=== PATIENT | female | born 1950 | race Caucasian/White ===

== ENCOUNTER 2016-12-31 15:56 | Emergency (ER) | payer MEDICARE ==
[2016-12-31 16:11] VITALS: BP 149/84
--- NOTE | 2016-12-31 16:40 | UC ---
Back Pain HPI - HPI Summary HPI Summary: The patient comes in today for: 1. Back pain: Onset: 1-2 weeks. She has a history of chronic back pain--initial onset "a couple years ago." Palliative/provocative: Bending down makes it worse--"but not all the time." Quality: "There are times when it is sharp." Region: In the past, it was the lower back, but now it is of the upper back. Severity: 0/10 at this time while she is sitting in a chair. Time: Comes and goes depending on her activity. Associated symptoms: Event: She was picking up a box of pool chemicals and turned feeling "something" that was wrong. Fevers/infections: NOne. Cancer/unexpected weight loss: None. Numbness/tingling: None new. Weakness: None Problems controlling her bowel/bladder. Treatment: Advil PM at night (1/2 pill last night). * - History of Current Complaint Chief Complaint: UCBackPain Stated Complaint: BACK INJURY Time Seen by Provider: 12/31/16 16:31 Hx Obtained From: Patient Hx Last Menstrual Period: Menopause ?: No - Allergies/Home Medications Allergies/Adverse Reactions: Allergies Allergy/AdvReac Type Severity Reaction Status Date / Time No Known Allergies Allergy Verified 12/31/16 16:11 Home Medications: Home Medications Fexofenadine (NF) [Blanca (NF)] 60 mg PO DAILY 12/31/16 [History Confirmed ] Ibuprofen-Diphenhydramine Citr [Advil Pm 200-38 mg] 1 tab PO BEDTIME PRN [History Confirmed 12/31/16] PMH/Surg Hx/FS Hx/Imm Hx Previously Healthy: Yes Endocrine History Of: Denies: Diabetes, Thyroid Disease, Hyperthyroidism, Hypothyroidism, Dyslipidemia Cardiovascular History Of: Denies: Cardiac Disorders, Hypertension, Pacemaker/ICD, Myocardial Infarction , Congestive Heart Failure, Atrial Fibrillation, Deep Vein Thrombosis, Bleeding Disorders Respiratory History Of: Denies: COPD, Asthma, Bronchitis, Pneumonia, Pulmonary Embolism GI/ History Of: Denies: Gastroesophageal Reflux, Ulcer, Gastrointestinal Bleed, Gall Bladder Disease, Kidney Stones, Diverticulitis, Renal Disease, Urosepsis Neurological History Of: Denies: TIA, CVA, Dementia, Seizures, Migraine Psychological History Of: Denies: Anxiety, Depression, Bipolar Disorder, Schizophrenia, Post Traumatic Stress Disorder Cancer History Of: Denies: Lung Cancer, Colorectal Cancer, Breast Cancer, Prostate Cancer, Cervical Cancer Other History Of: Negative For: HIV, Hepatitis B, Hepatitis C, Anticoagulant Therapy - Surgical History Surgical History: Yes Surgery Procedure, Year, and Place: tubal ligation - Family History Known Family History: Positive: Diabetes Negative: Cardiac Disease, Hypertension - Social History Occupation: Retired Alcohol Use: Weekly Substance Use Type: None Smoking Status (MU): Never Smoked Tobacco Review of Systems Constitutional: Negative Skin: Negative Eyes: Negative ENT: Negative Respiratory: Negative Cardiovascular: Negative Gastrointestinal: Negative Genitourinary: Negative Musculoskeletal: Arthralgia, Myalgia All Other Systems Reviewed And Are Negative: Yes Physical Exam Triage Information Reviewed: Yes Appearance: Well-Appearing, No Pain Distress, Well-Nourished Vital Signs: Initial Vital Signs Temp 97.4 F 12/31/16 16:08 Pulse 98 12/31/16 16:08 Resp 16 12/31/16 16:08 BP 149/84 12/31/16 16:08 Pulse Ox 98 12/31/16 16:08 Vital Signs Reviewed: Yes Eyes: Positive: Conjunctiva Clear. Negative: Discharge ENT: Positive: Hearing grossly normal. Negative: Pharyngeal erythema, Nasal congestion, Nasal drainage, TM bulging, TM dull, TM red, Tonsillar swelling, Tonsillar exudate Dental: Negative: Gross Decay/Caries @, Dental Fracture @ Neck: Positive: Supple, Nontender, No Lymphadenopathy. Negative: Nuchal Rigidity Respiratory: Positive: Lungs clear, No respiratory distress, No accessory muscle use. Negative: Crackles, Wheezing Cardiovascular: Positive: RRR, No Murmur Abdomen Description: Positive: Nontender, No Organomegaly, Soft. Negative: Distended, Guarding Musculoskeletal: Positive: Strength Intact, ROM Intact, Other: - The patient had no psychomotor slowing or guarding. There was no tenderness to palpation of the spinous processes or the paraspinous musculature. There was no CVA tenderness. She had no marked restriction of her spine movement (forward flexion, backward extension, bilateral flexion). She had no SLR bilaterally and her DTR were 2+/2 x 2 for patellar and 1+/2 x 2 for her Achilles. Neurological: Positive: Alert, Muscle Tone Normal Psychological: Positive: Age Appropriate Behavior, Consolable Skin: Negative: rashes, breakdown Back Pain Course/Dx - Course Course Of Treatment: Patient told of her diagnosis and treatment options. She was agreeable to NSAID and muscle relaxant. - Differential Dx/Diagnosis Provider Diagnoses: High blood pressure. Mid back pain/strain Discharge - Discharge Plan Condition: Stable Disposition: HOME Patient Education Materials: Hypertension (ED), Back Pain (ED) Referrals: Arvind Maher MD [Primary Care Provider] - 1 Week (Please see your primary care provider in a week to see how well you are doing. If you get worse, please be seen sooner in the ER or through us.)
== END 2016-12-31 17:05 | disposition home or self-care (01) ==
LOC: UCEAST 15:56
DX: S29.012A Strain of muscle and tendon of back wall of thorax, initial encounter (principal); M54.9 Dorsalgia, unspecified; I10 Essential (primary) hypertension; X50.9XXA Other and unspecified overexertion or strenuous movements or postures, initial encounter; Z78.0 Asymptomatic menopausal state
CPT/HCPCS: 99212; G0463

== ENCOUNTER 2018-02-13 09:03 | Emergency (ER) | payer MEDICARE, BC ==
[2018-02-13 09:12] VITALS: BP 135/89
[2018-02-13] MEDS ORDERED: Ondansetron ODT TAB* 4 MG PO ONE (10:17)
--- NOTE | 2018-02-13 10:26 | UC ---
Abdominal Pain Female HPI - HPI Summary HPI Summary: c/o nausea, vomiting and diarrhea for the past 36 hrs, she vomited last yesterday night and ever since has been taking sips of water and tolerating it. She had quite a bit of dry heaving since last night and states she started to feel pain on RUQ. Denies chills or fever, denies flank pain or radiation of pain to other areas. - History of Current Complaint Chief Complaint: UCGI Stated Complaint: VOMITING Time Seen by Provider: 02/13/18 09:51 Hx Last Menstrual Period: Menopause ?: No Onset/Duration: Sudden Onset, Lasting Days Timing: Constant - minutes Severity Initially: Mild Severity Currently: Mild Pain Intensity: 3 Location: Discrete At: RUQ Character: Aching Aggravating Factor(s): Nothing Alleviating Factor(s): Nothing Associated Signs and Symptoms: Positive: Nausea, Vomiting, Diarrhea - Risk Factors Ectopic Risk Factor: Negative Ovarian Torsion Risk Factor: Negative Allergies/Adverse Reactions: Allergies Allergy/AdvReac Type Severity Reaction Status Date / Time No Known Allergies Allergy Verified 02/13/18 09:12 PMH/Surg Hx/FS Hx/Imm Hx Previously Healthy: Yes Other History Of: Negative For: HIV, Hepatitis B, Hepatitis C, Anticoagulant Therapy - Surgical History Surgical History: Yes Surgery Procedure, Year, and Place: tubal ligation - Family History Known Family History: Positive: Diabetes Negative: Cardiac Disease, Hypertension - Social History Alcohol Use: Weekly Substance Use Type: None Smoking Status (MU): Never Smoked Tobacco Review of Systems Constitutional: Negative Gastrointestinal: Abdominal Pain, Vomiting, Diarrhea, Nausea All Other Systems Reviewed And Are Negative: Yes Physical Exam Triage Information Reviewed: Yes Appearance: Well-Appearing, No Pain Distress, Obese Vital Signs: Initial Vital Signs Temp 97.6 F 02/13/18 09:08 Pulse 103 02/13/18 09:08 Resp 18 02/13/18 09:08 BP 135/89 02/13/18 09:08 Pulse Ox 96 02/13/18 09:08 Vital Signs Reviewed: Yes Eyes: Positive: Conjunctiva Clear ENT: Positive: Pharynx normal Neck: Positive: Supple, Nontender, No Lymphadenopathy Respiratory: Positive: Chest non-tender, Lungs clear, Normal breath sounds, No respiratory distress Cardiovascular: Positive: RRR, No Murmur, Pulses Normal, Brisk Capillary Refill Abdomen Description: Positive: Nontender, No Organomegaly, Soft, Other: - maddox sign negative Bowel Sounds: Positive: Present Abd Pain Female Course/Dx - Course Course Of Treatment: Patient's history and exam compatible with viral gastroenteritis, has been able to tolerate fluids since last night. Abdominal exam was negative. Possible etiology of pain was mechanical due to repeated dry heaving. She was concerned about gallstones and mother/brother had cholecystectomy in the past. F/u with PCP if symptoms persist. - Differential Dx/Diagnosis Provider Diagnoses: viral gastroenteritis Discharge - Sign-Out/Discharge Documenting (check all that apply): Discharge/Admit/Transfer - Discharge Plan Condition: Good Disposition: HOME Prescriptions: Ondansetron TAB* [Zofran 4 MG Tab*] 4 mg PO Q6H PRN 5 Days #20 tab PRN Reason: Nausea Patient Education Materials: Ondansetron (By mouth), Dehydration (ED), Gastroenteritis (ED) Referrals: Arvind Maher MD [Primary Care Provider] - Additional Instructions: follow up with your primary care doctor in 1-2 weeks - Billing Disposition and Condition Condition: GOOD Disposition: Home
== END 2018-02-13 10:30 | disposition home or self-care (01) ==
LOC: UCEAST 09:03
DX: K52.9 Noninfective gastroenteritis and colitis, unspecified (principal)
CPT/HCPCS: A9270-GY

== ENCOUNTER 2018-03-04 07:58 | Emergency (ER) | payer BC, MEDICARE ==
[2018-03-04 08:09] VITALS: BP 128/71
--- NOTE | 2018-03-04 08:33 | UC ---
Lower Extremity/Ankle HPI - HPI Summary HPI Summary: WAS WALKING ON THE STAIRS WHILE CARRYING A TRAY YESTERDAY AND MISSED A STEP FALLING DOWN AND INJURING HER RIGHT FOOT AND ANKLE. IS UNABLE TO WEIGHT-BEAR. - History of Current Complaint Chief Complaint: UCLowerExtremity Stated Complaint: FOOT INJURY Time Seen by Provider: 03/04/18 08:27 Hx Obtained From: Patient Hx Last Menstrual Period: Menopause Onset/Duration: Sudden Onset, Lasting Hours, Still Present Severity Initially: Moderate Severity Currently: Moderate Pain Intensity: 7 Pain Scale Used: 0-10 Numeric Aggravating Factor(s): Standing, Ambulation Alleviating Factor(s): Rest, Elevation Able to Bear Weight: No - WITH SEVERE PAIN - Allergies/Home Medications Allergies/Adverse Reactions: Allergies Allergy/AdvReac Type Severity Reaction Status Date / Time No Known Allergies Allergy Verified 03/04/18 08:09 Home Medications: Home Medications NK [No Home Medications Reported] 03/04/18 [History Confirmed 03/04/18] PMH/Surg Hx/FS Hx/Imm Hx Previously Healthy: Yes Other History Of: Negative For: HIV, Hepatitis B, Hepatitis C, Anticoagulant Therapy - Surgical History Surgical History: Yes Surgery Procedure, Year, and Place: tubal ligation - Family History Known Family History: Positive: Diabetes Negative: Cardiac Disease, Hypertension - Social History Alcohol Use: Weekly Substance Use Type: None Smoking Status (MU): Never Smoked Tobacco Review of Systems Constitutional: Negative Skin: Bruising Respiratory: Negative Cardiovascular: Negative Gastrointestinal: Negative Musculoskeletal: Arthralgia, Decreased ROM, Edema All Other Systems Reviewed And Are Negative: Yes Physical Exam Triage Information Reviewed: Yes Appearance: Well-Appearing, No Pain Distress, Well-Nourished Vital Signs: Initial Vital Signs Temp 96.7 F 03/04/18 08:06 Pulse 80 03/04/18 08:06 Resp 17 03/04/18 08:06 BP 128/71 03/04/18 08:06 Pulse Ox 100 03/04/18 08:06 Vital Signs Reviewed: Yes Eyes: Positive: Conjunctiva Clear ENT: Positive: Hearing grossly normal Neck: Positive: Supple Respiratory: Positive: No respiratory distress, No accessory muscle use Cardiovascular: Positive: Pulses Normal Abdomen Description: Positive: Soft Musculoskeletal: Positive: ROM Limited @ - RIGHT FOOT/ANKLE, Edema @ - RIGHT FOOT/ANKLE, Other: - TTP RIGHT ANKLE LATERAL MALLEOLUS AND MALLEOLAR ZONE. TTP RIGHT 5TH METATARSAL. Neurological: Positive: Alert Psychological: Positive: Age Appropriate Behavior Skin: Positive: Other - BRUISING RIGHT FOOT Diagnostics - Radiology RIGHT FOOT/ANKLE XRAYS Xray Interpretation: Positive (See Comments) - 1. Capsular avulsion type fractures flanking the dorsal margin of the talonavicular articulation. 2. Nondisplaced fracture tuberosity base of fifth metatarsal. 3. Corresponding soft tissue swelling. Radiology Interpretation Completed By: Radiologist Lower Extremity Course/Dx - Differential Dx/Diagnosis Provider Diagnoses: 1. Capsular avulsion with osseous injury component - right ankle. 2. Nondisplaced fracture tuberosity base of right fifth metatarsal. Discharge - Sign-Out/Discharge Documenting (check all that apply): Patient Departure - area between the ice. While I trying to fill at 67 or 68 so as not to light free he people out and she presented to 7 days things outlined I didn't touch that she is thinking that the 70 - Discharge Plan Condition: Stable Disposition: HOME Patient Education Materials: Foot Fracture in Adults (ED) Referrals: Arvind Maher MD [Primary Care Provider] - If Needed Jose M Calloway MD [Medical Doctor] - 3 Days Additional Instructions: XRAY TODAY SHOWS 1. Capsular avulsion type fractures flanking the dorsal margin of the talonavicular articulation. 2. Nondisplaced fracture tuberosity base of fifth metatarsal. 3. Corresponding soft tissue swelling. WEAR THE BOOT AT ALL TIMES AND DO NOT WEIGHT BEAR UNTIL SEEN BY ORTHO. ELEVATE WHEN SEATED. ICE 4 TIMES DAILY. - Billing Disposition and Condition Condition: STABLE Disposition: Home
--- NOTE | 2018-03-04 09:03 | RAD ---
Indication: RIGHT ankle pain post fall. Pain at the dorsum of the foot. Comparison: No relevant prior exams available on the [facility]ACS for comparison. Technique: AP, mortise, and lateral views RIGHT ankle. AP, lateral, and oblique views RIGHT foot. Report: Small waferlike osseous fragments at the dorsal margin of the head of the talus and dorsal margin of the navicula most consistent with sequela of capsular avulsion with osseous injury component. Nondisplaced transverse fracture at the tuberosity of the base of the fifth metatarsal. Negative for additional fracture or articular malalignment at the ankle or foot. Soft tissue swelling most prominent over the lateral aspect of the hind through mid foot and over the dorsum of the ankle and foot. IMPRESSION: #. Capsular avulsion type fractures flanking the dorsal margin of the talonavicular articulation. #. Nondisplaced fracture tuberosity base of fifth metatarsal. #. Corresponding soft tissue swelling.
--- NOTE | 2018-03-04 09:03 | RAD ---
Indication: RIGHT ankle pain post fall. Pain at the dorsum of the foot. Comparison: No relevant prior exams available on the [facility] [place] for [place]. Technique: AP, mortise, and lateral views RIGHT ankle. AP, lateral, and oblique views RIGHT foot. Report: Small waferlike osseous fragments at the dorsal margin of the head of the talus and dorsal margin of the navicula most consistent with sequela of capsular avulsion with osseous injury component. Nondisplaced transverse fracture at the tuberosity of the base of the fifth metatarsal. Negative for additional fracture or articular malalignment at the ankle or foot. Soft tissue swelling most prominent over the lateral aspect of the hind through mid foot and over the dorsum of the ankle and foot. IMPRESSION: #. Capsular avulsion type fractures flanking the dorsal margin of the talonavicular articulation. #. Nondisplaced fracture tuberosity base of fifth metatarsal. #. Corresponding soft tissue swelling.
== END 2018-03-04 09:59 | disposition home or self-care (01) ==
LOC: UCEAST 07:58
DX: S82.891A Other fracture of right lower leg, initial encounter for closed fracture (principal); S92.354A Nondisplaced fracture of fifth metatarsal bone, right foot, initial encounter for closed fracture; W10.8XXA Fall (on) (from) other stairs and steps, initial encounter; Y93.01 Activity, walking, marching and hiking; Y92.9 Unspecified place or not applicable
CPT/HCPCS: 99212; G0463

== ENCOUNTER 2018-03-22 06:33 | Inpatient (IN) | payer MEDICARE ==
--- OUTSIDE RECORDS SUMMARY | 2018-03-22 06:45 | XMS REPORT ---
:1950 External Reference #:[id number] Author Organization [employer] Address [address] [place] [address] [place] [address] Phone [phone] Care Team Providers Name Role Phone Arvind Maher MD Primary Care Physician Unavailable Payers Type Date Identification Numbers Payment Provider Subscriber Health Maintenance Policy Number: Medicare Blue Ppo Roxy Barreto [facility] [place] (O) [id number] PayID: [id number] [address] [address] [place] [address] Medigap Part B Effective: 08/16/2012 Policy Number: BS Of [place] Roxy Barreto [id number] Expires: 08/15/2016 PayID: [id number] [address] [address] [place] [address] Problems Description No Information Social History Type Date Description Comments Smoking Patient has never smoked Allergies, Adverse Reactions, Alerts Date Description Reaction Status Severity Comments 03/07/2018 NKDA active Medications Medication Date Status Form Strength Qnty SIG Indications Ordering Provider No Active 03/07/2018 Active Unknown Medications Vital Signs Date Vital Result Comment 03/07/2018 Height 68 inches 5'8" Weight 190.00 lb Heart Rate 76 /min BP Systolic Sitting 116 mmHg BP Diastolic Sitting 84 mmHg Respiratory Rate 16 /min Pain Level 3 BMI (Body Mass Index) 28.9 kg/m2 Results Description No Information Procedures Date CPT Code Description Status 07/06/2017 20229 Destruction Of Benign Lesions Any Method 1-14 lesions Completed 01/31/2013 73752 Rad Exam; Foot Comp Completed 01/16/2013 96270 FX Treatment Closed Phalanx Other Than Great Toe W/O Completed Manip 01/16/2013 22324 FX Treatment Closed Phalanx Other Than Great Toe W/O Completed Manip 01/16/2013 17376 FX Metatarsal Care Completed Plan of Care Future Appointment(s):04/22/2018 9:15 am - [facility]
[2018-03-22] MEDS ORDERED: NS 0.9% 1000 ML* 2,000 ML IV ONE (06:53)
[2018-03-22 07:28] LABS: ABS Basophils 0.1 10^3/ul (0-0.2); ABS Eosinophils 0 10^3/ul (0-0.6); ABS Lymphocytes 1.8 10^3/ul (1.0-4.8); ABS Monocytes 0.8 10^3/ul (0-0.8); ABS Neutrophils 13.1 10^3/ul (1.5-7.7); ABS Nucleated RBC 0 10^3/ul; Eosinophil % 0.3 % (0-6); Hematocrit 44 % (35-47); Hemoglobin 14.6 g/dl (12.0-16.0); Lymphocyte % 11.3 % (25-47); Mean Corpuscular HGB Conc 33 g/dl (31-36); Mean Corpuscular Hemoglobin 27 pg (27-31); Mean Corpuscular Volume 80 fL (80-97); Nucleated Red Blood Cells % 0.1; Platelet Count 208 10^3/ul (150-450); Red Blood Count 5.48 10^6/ul (4.00-5.40); Red Cell Distribution Width 14 % (10.5-15); White Blood Count 15.8 10^3/ul (3.5-10.8)
[2018-03-22 07:41] LABS: EGFR Non-African American 38.6 (>60)
[2018-03-22] MEDS ORDERED: Iodixanol* (CONTRAST) 320 MG/ML 100 ML SDV IV ONE (07:43)
[2018-03-22] MEDS ORDERED: Alteplase* 100 MG VIAL ONE (08:15)
--- NOTE | 2018-03-22 08:19 | RAD ---
INDICATION: Chest pain. Short of breath. Evaluate for pulmonary embolus. COMPARISON: None TECHNIQUE: Axial source images were obtained from the thoracic inlet to the hemidiaphragms following administration of [address] angiographic technique was utilized. Coronal and sagittal reconstructed images were acquired. CHEST FINDINGS: Neck/thyroid: The visualized neck to include the thyroid appear normal. Chest wall: There are no acute abnormalities of the bony thorax or chest wall. There is no supraclavicular, infraclavicular, or axillary lymphadenopathy. Lungs : There are no pulmonary parenchymal masses or infiltrates. The pulmonary interstitium appears normal. There are no endobronchial lesions. Cardiomediastinal structures: There is a saddle-type pulmonary embolus with involvement of second order and distal branches bilaterally. There is preferential involvement of the lower lobes. This represent large thrombus burden The heart is normal in size. There is no pericardial effusion. There is no evidence of aortic aneurysm or dissection. There is no mediastinal or hilar adenopathy. The esophagus appears normal. Pleura : There are no pleural-based masses or effusions. Other: Limited views the upper abdomen demonstrate cholelithiasis with several large gallstones measuring up to 2.4 cm. There is a small hiatal hernia. IMPRESSION: 1. Saddle pulmonary embolus. 2. Cholelithiasis. Findings discussed with emergency department at 0810 hours
[2018-03-22] MEDS ORDERED: Alteplase* 100 MG in PREMIX* 100 ML IVPB ONE (08:25)
--- NOTE | 2018-03-22 10:31 | ECHO ---
Patient: ROXY NASH [facility] Rec#: [id number] : 1950 Date: 03/22/2018 Age: 67y Height: 172.72 cm / 68.0 in Weight: 96.16 kg / 211.9 lbs Sex: F BSA: 2.1 Room#: [facility] Admit Date#: 03/22/2018 Type: Inpatient Referring: Emili De La Torre Reading: Attila Winchester MD Commercial Decorator: [facility] Commercial Decorator: Roxy Johnson RDCS CC: Arvind Maher MD Transthoracic Echocardiogram Indication: Pulmonary Emboli BP: 105/74 HR: 93 Rhythm: NSR Findings History: No PMHx, currently with saddle PE. Technical Comments: The study quality is fair. Completed at 0957. Left Ventricle: The left ventricular chamber size is decreased. There is normal left ventricular systolic function. The estimated ejection fraction is 60-65%. Abnormal left ventricular diastolic function is observed. Abnormal left ventricular diastolic filling is observed, consistent with impaired relaxation. Left Atrium: The left atrial chamber size is normal. Right Ventricle: The right ventricle is moderate to severely dilated. The right ventricular global systolic function is severely reduced. The free wall of the right ventricle appears akinetic.Preserved RV function at the apex c/w Kee's sign: consider pulmonary embolism and acute cor pulmonale. Flattened in systole and diastole consistent with right ventricular pressure and volume overload. Right Atrium: The right atrium is mildly dilated. Aortic Valve: The aortic valve is trileaflet. There is no evidence of aortic regurgitation. There is no evidence of aortic stenosis. Mitral Valve: The mitral valve leaflets appear normal. There is no evidence of mitral regurgitation. There is no evidence of mitral stenosis. Tricuspid Valve: The tricuspid valve leaflets are normal. There is mild to moderate tricuspid regurgitation. There is evidence that pulmonary hypertension may be underestimated. There is no tricuspid stenosis. Pulmonic Valve: The pulmonic valve appears normal. There is no evidence of pulmonic regurgitation. There is no pulmonic stenosis. Pericardium: A pericardial fat pad is visualized. Aorta: There is no dilatation of the ascending aorta. There is no dilatation of the aortic arch. There is no dilation of the aortic root. Pulmonary Artery: The main pulmonary artery appears normal. Venous: The inferior vena cava appears normal in size. There is a greater than 50% respiratory change in the inferior vena cava dimension. Summary: There was not any prior study for comparison. Conclusions The estimated ejection fraction is 60-65%. Abnormal left ventricular diastolic filling is observed, consistent with impaired relaxation. The right ventricle is moderate to severely dilated. The right ventricular global systolic function is severely reduced. The free wall of the right ventricle appears akinetic. Preserved RV function at the apex c/w Kee's sign: consider pulmonary embolism and acute cor pulmonale. Flattened in systole and diastole consistent with right ventricular pressure and volume overload. The right atrium is mildly dilated. There is mild to moderate tricuspid regurgitation. There is evidence that pulmonary hypertension may be underestimated. Measurements Name Value Normal Range RVIDd (AP) 2D 3.3 cm (0.9 - 2.6) RVDdMajor (2D) 5.7 cm (2.2 - 4.4) RAd ISD 4CH 5 cm (3.4 - 4.9) RA (A4C)W 3.5 cm (2.9 - 4.6) IVSd (2D) 1 cm (0.6 - 1) LVPWd (2D) 1 cm (0.6 - 1) LVIDd (2D) 3 cm (3.6 - 5.4) LVIDs (2D) 2.1 cm - LV FS (2D) 30 % (25 - 45) Aortic Annulus 1.8 cm (1.4 - 2.6) Ao root diameter (2D) 2.9 cm (2.1 - 3.5) Ascending Ao 2.9 cm (2.1 - 3.4) Aortic arch 2.6 cm (1.8 - 3.4) Descending Ao 0.7 cm - LA dimension (AP) 2D 2.4 cm (2.3 - 3.8) LAd ISD 4CH 4.5 cm (2.9 - 5.3) LA ISD 4CH W 2.8 cm (2.5 - 4.5) Name Value Normal Range MV E-wave Vmax 0.6 m/sec - MV deceleration time 146 msec - MV A-wave Vmax 1 m/sec - MV E:A ratio 0.58 ratio - LV septal e' Vmax 0.06 m/sec - LV lateral e' Vmax 0.1 m/sec - LV E:e' septal ratio 10 ratio - LV E:e' lateral ratio 6 ratio - Name Value Normal Range AV Vmax 1.3 m/sec - AV VTI 19.2 cm - AV peak gradient 6.36 mmHg - AV mean gradient 3.25 mmHg - LVOT Vmax 0.9 m/sec - LVOT VTI 15.3 cm - LVOT peak gradient 3.37 mmHg - LVOT mean gradient 1.75 mmHg - Name Value Normal Range TR Vmax 2.7 m/sec - TR peak gradient 29 mmHg - RAP 3 mmHg - RVSP 32 mmHg - IVC diameter 1.9 cm - Name Value Normal Range PV Vmax 0.4 m/sec - PV peak gradient 0.6 mmHg -
--- NOTE | 2018-03-22 11:05 | ED ---
Shortness of Breath - HPI Summary HPI Summary: Patient is a 67-year-old female presenting to the ED with sudden onset shortness of breath this morning. She states she has been feeling ill for the past 2 days with some shortness of breath, but states this increased drastically upon wakening this morning. She was unable to walk a few steps before losing her breath and needing to sit down. Recent fracture to the right foot without surgery. However, she states she continues to be ambulatory. She takes no medications and denies any significant health history. Denies any previous episodes of DVT or PE. Denies any chest pain. She endorses some calf pain, redness and swelling which occurred last week but had spontaneously resolved. - History of Current Complaint Chief Complaint: EDShortnessOfBreath Time Seen by Provider: 03/22/18 06:42 Hx Obtained From: Patient Onset/Duration: Sudden Onset Timing: Constant Current Severity: Severe Dyspnea At: Rest Aggrevating Factors: Movement Associated Signs & Symptoms: Negative, Calf Pain/Swelling Related History: Recent Trauma - Risk Factors Pulmonary Embolism: Trauma - recent foot fx Cardiac: Negative Pseudomonas: Negative Tuberculosis: Negative - Allergy/Home Medications Allergies/Adverse Reactions: Allergies Allergy/AdvReac Type Severity Reaction Status Date / Time No Known Allergies Allergy Verified 03/22/18 06:41 PMH/Surg Hx/FS Hx/Imm Hx Previously Healthy: Yes Endocrine/Hematology History: Denies: Hx Anticoagulant Therapy, Hx Diabetes, Hx Thyroid Disease Cardiovascular History: Denies: Hx Congestive Heart Failure, Hx Deep Vein Thrombosis, Hx Hypertension , Hx Myocardial Infarction, Hx Pacemaker/ICD Respiratory History: Denies: Hx Asthma, Hx Chronic Obstructive Pulmonary Disease (COPD), Hx Lung Cancer, Hx Pneumonia, Hx Pulmonary Embolism GI History: Denies: Hx Gall Bladder Disease, Hx Gastrointestinal Bleed, Hx Ulcer, Hx Urosepsis History: Denies: Hx Kidney Stones, Hx Renal Disease Neurological History: Denies: Hx Dementia, Hx Migraine, Hx Seizures, Hx Transient Ischemic Attacks (TIA) Psychiatric History: Denies: Hx Anxiety, Hx Depression, Hx Schizophrenia, Hx Bipolar Disorder - Cancer History Hx Chemotherapy: No Hx Radiation Therapy: No - Surgical History Surgery Procedure, Year, and Place: tubal ligation - Immunization History Hx Pertussis Vaccination: No Immunizations Up to Date: Yes Infectious Disease History: No Infectious Disease History: Reports: Hx Clostridium Difficile Denies: Hx Hepatitis, Hx Human Immunodeficiency Virus (HIV), Hx of Known/ Suspected MRSA, Traveled Outside the [place] in Last 30 Days - Family History Known Family History: Positive: Diabetes Negative: Cardiac Disease, Hypertension - Social History Occupation: Unemployed Lives: With Family Alcohol Use: Weekly Hx Substance Use: No Substance Use Type: Reports: None Hx Tobacco Use: No Smoking Status (MU): Never Smoked Tobacco Review of Systems Constitutional: Negative Negative: Fever, Chills, Fatigue, Skin Diaphoresis Negative: Palpitations, Chest Pain Positive: Shortness Of Breath. Negative: Cough Negative: Abdominal Pain, Vomiting, Diarrhea, Nausea Genitourinary: Negative Positive: no symptoms reported, see HPI Musculoskeletal: Negative Skin: Negative All Other Systems Reviewed And Are Negative: Yes Physical Exam Triage Information Reviewed: Yes Vital Signs On Initial Exam: Initial Vitals Temp Pulse Resp BP Pulse Ox 97.5 F 102 30 81/57 87 03/22/18 06:35 03/22/18 06:35 03/22/18 06:35 03/22/18 06:35 03/22/18 06:35 Vital Signs Reviewed: Yes Appearance: Positive: Ill-Appearing Skin: Positive: Warm, Skin Color Reflects Adequate Perfusion Head/Face: Positive: Normal Head/Face Inspection Eyes: Positive: EOMI, RICARDO, Conjunctiva Clear Neck: Positive: Supple, No Lymphadenopathy Respiratory/Lung Sounds: Positive: Decreased Breath Sounds Cardiovascular: Positive: Tachycardia. Negative: Leg Edema Left, Leg Edema Right Musculoskeletal: Positive: Normal, Strength/ROM Intact Neurological: Positive: Sensory/Motor Intact, Alert, Oriented to Person Place, Time Psychiatric: Positive: Normal - [place] Coma Scale Best Eye Response: 4 - Spontaneous Best Motor Response: 6 - Obeys Commands Best Verbal Response: 5 - Oriented Coma Scale Total: 15 Diagnostics - Vital Signs Vital Signs Temp Pulse Resp BP Pulse Ox 03/22/18 09:14 90 28 108/66 87 03/22/18 09:00 90 27 100 03/22/18 08:44 90 23 109/86 100 03/22/18 08:30 96.4 F 03/22/18 08:09 85 21 111/80 96 03/22/18 08:08 93 15 94 03/22/18 07:37 97 27 92 03/22/18 07:00 100 24 84 03/22/18 06:49 97 26 105/74 86 03/22/18 06:47 104 29 85 03/22/18 06:35 97.5 F 102 30 81/57 87 - Laboratory Lab Results: Lab Results 03/22/18 03/22/18 03/22/18 Range/Units 07:01 07:01 07:01 WBC 15.8 H (3.5-10.8) 10^3/ul RBC 5.48 H (4.00-5.40) 10^6/ul Hgb 14.6 (12.0-16.0) g/dl Hct 44 (35-47) % MCV 80 (80-97) fL MCH 27 (27-31) pg MCHC 33 (31-36) g/dl RDW 14 (10.5-15) % Plt Count 208 (150-450) 10^3/ul MPV 8.0 (7.4-10.4) um3 Neut % (Auto) 82.9 (38-83) % Lymph % (Auto) 11.3 L (25-47) % [place] % (Auto) 5.1 (0-7) % Eos % (Auto) 0.3 (0-6) % Baso % (Auto) 0.4 (0-2) % Absolute Neuts (auto) 13.1 H (1.5-7.7) 10^3/ul Absolute Lymphs (auto) 1.8 (1.0-4.8) 10^3/ul Absolute Monos (auto) 0.8 (0-0.8) 10^3/ul Absolute Eos (auto) 0 (0-0.6) 10^3/ul Absolute Basos (auto) 0.1 (0-0.2) 10^3/ul Absolute Nucleated RBC 0 10^3/ul Nucleated RBC % 0.1 APTT 21.0 L (26.0-36.3) seconds Sodium 141 (135-145) mmol/L Potassium 3.9 (3.5-5.0) mmol/L Chloride 107 (101-111) mmol/L Carbon Dioxide 20 L (22-32) mmol/L Anion Gap 14 H (2-11) mmol/L BUN 22 (6-24) mg/dL Creatinine 1.36 H (0.51-0.95) mg/dL Est GFR ( Amer) 46.6 (>60) Est GFR (Non-Af Amer) 38.6 (>60) BUN/Creatinine Ratio 16.2 (8-20) Glucose 213 H (70-100) mg/dL Lactic Acid (0.5-2.0) mmol/L Calcium 9.8 (8.6-10.3) mg/dL Total Bilirubin 0.60 (0.2-1.0) mg/dL AST 23 (13-39) U/L ALT 16 (7-52) U/L Alkaline Phosphatase 115 H (34-104) U/L Troponin I 0.43 H* (<0.04) ng/mL B-Natriuretic Peptide ( - 100) pg/mL Total Protein 7.6 (6.4-8.9) g/dL Albumin 4.1 (3.2-5.2) g/dL Globulin 3.5 (2-4) g/dL Albumin/Globulin Ratio 1.2 (1-3) 03/22/18 03/22/18 Range/Units 07:01 07:01 WBC (3.5-10.8) 10^3/ul RBC (4.00-5.40) 10^6/ul Hgb (12.0-16.0) g/dl Hct (35-47) % MCV (80-97) fL MCH (27-31) pg MCHC (31-36) g/dl RDW (10.5-15) % Plt Count (150-450) 10^3/ul MPV (7.4-10.4) um3 Neut % (Auto) (38-83) % Lymph % (Auto) (25-47) % [place] % (Auto) (0-7) % Eos % (Auto) (0-6) % Baso % (Auto) (0-2) % Absolute Neuts (auto) (1.5-7.7) 10^3/ul Absolute Lymphs (auto) (1.0-4.8) 10^3/ul Absolute Monos (auto) (0-0.8) 10^3/ul Absolute Eos (auto) (0-0.6) 10^3/ul Absolute Basos (auto) (0-0.2) 10^3/ul Absolute Nucleated RBC 10^3/ul Nucleated RBC % APTT (26.0-36.3) seconds Sodium (135-145) mmol/L Potassium (3.5-5.0) mmol/L Chloride (101-111) mmol/L Carbon Dioxide (22-32) mmol/L Anion Gap (2-11) mmol/L BUN (6-24) mg/dL Creatinine (0.51-0.95) mg/dL Est GFR ( Amer) (>60) Est GFR (Non-Af Amer) (>60) BUN/Creatinine Ratio (8-20) Glucose (70-100) mg/dL Lactic Acid 4.2 H* (0.5-2.0) mmol/L Calcium (8.6-10.3) mg/dL Total Bilirubin (0.2-1.0) mg/dL AST (13-39) U/L ALT (7-52) U/L Alkaline Phosphatase (34-104) U/L Troponin I (<0.04) ng/mL B-Natriuretic Peptide 406 H ( - 100) pg/mL Total Protein (6.4-8.9) g/dL Albumin (3.2-5.2) g/dL Globulin (2-4) g/dL Albumin/Globulin Ratio (1-3) Result Diagrams: 03/22/18 07:01 03/22/18 07:01 Lab Statement: Any lab studies that have been ordered have been reviewed, and results considered in the medical decision making process. Course/Dx - Course Course Of Treatment: On arrival to the ED, vital signs show hypotension, respirations of 30, and on 3 L she was satting at 82. This was increased to 5 L and she began to sat at 88. CTA obtained as well as labs which show saddle emboli. Trop at .43 and lactic at 4.2. Called ICU who agrees to admit patient. TPA given. Echo pending. - Diagnoses Differential Diagnosis/HQI/PQRI: Positive: Pulmonary Embolism Provider Diagnoses: Pulmonary embolism, bilateral - Physician Notifications Discussed Care of Patient With: Thuan Terrazas MD - ICU Instructed by Provider To: Admit As Inpatient - Critical Care Time Critical Care Time: 30-74 min Discharge - Sign-Out/Discharge Documenting (check all that apply): Patient Departure - Discharge Plan Condition: Fair Disposition: ADMITTED TO [facility] - Billing Disposition and Condition Condition: FAIR Disposition: Admitted to [facility]
--- NOTE | 2018-03-22 12:33 | HP ---
H&P (Free Text) History and Physical: CC: Shortness of breath HPI: 67F with recent non-displaced right foot fracture presents with shortness of breath. The patient states that recent broke her foot and was placed in a walking boot. Her leg started swelling and becoming purple over the past few days. Then this AM she became acutely short of breath and weak. She was to board a plane for [place] but stated she was not feeling up to it. She came to the ER and was found to be markedly hypoxic. She was sent to CT scan and was found to have a saddle embolus. TTE showed mcconnells sign. She was given tPA and admitted to the ICU. The patient states she has no history of bleeding or clotting in her family. She reports being up to date with age appropriate cancer screenings. ROS - as per HPI PMHx - foot fracture, narrow urethra PSHx - lumpectomy All - nkda SocHx - no drugs, etoh, or tobacco FamHx - denies PE Vital Signs: Temp Pulse Resp BP Pulse Ox 98.2 F 82 22 129/85 96 03/22/18 11:06 03/22/18 11:46 03/22/18 11:46 03/22/18 11:46 03/22/18 11:46 Gen - NAD HEENT - ncat, eomi, perrl Neck - no jvd CV - s1/s2, no murmur Lungs - cta, no wheeze Abd - soft, nt, nd Ext - +RLE swelling, minimal erythema, Homans sign negative Neuro - Non-focal Labs Laboratory Results - last 24 hr 03/22/18 03/22/18 03/22/18 07:01 07:01 07:01 WBC 15.8 H RBC 5.48 H Hgb 14.6 Hct 44 MCV 80 MCH 27 MCHC 33 RDW 14 Plt Count 208 MPV 8.0 Neut % (Auto) 82.9 Lymph % (Auto) 11.3 L [place] % (Auto) 5.1 Eos % (Auto) 0.3 Baso % (Auto) 0.4 Absolute Neuts (auto) 13.1 H Absolute Lymphs (auto) 1.8 Absolute Monos (auto) 0.8 Absolute Eos (auto) 0 Absolute Basos (auto) 0.1 Absolute Nucleated RBC 0 Nucleated RBC % 0.1 APTT 21.0 L Sodium 141 Potassium 3.9 Chloride 107 Carbon Dioxide 20 L Anion Gap 14 H BUN 22 Creatinine 1.36 H Est GFR ( Amer) 46.6 Est GFR (Non-Af Amer) 38.6 BUN/Creatinine Ratio 16.2 Glucose 213 H Lactic Acid Calcium 9.8 Total Bilirubin 0.60 AST 23 ALT 16 Alkaline Phosphatase 115 H Troponin I 0.43 H* B-Natriuretic Peptide Total Protein 7.6 Albumin 4.1 Globulin 3.5 Albumin/Globulin Ratio 1.2 03/22/18 03/22/18 03/22/18 07:01 07:01 10:30 WBC RBC Hgb Hct MCV MCH MCHC RDW Plt Count MPV Neut % (Auto) Lymph % (Auto) [place] % (Auto) Eos % (Auto) Baso % (Auto) Absolute Neuts (auto) Absolute Lymphs (auto) Absolute Monos (auto) Absolute Eos (auto) Absolute Basos (auto) Absolute Nucleated RBC Nucleated RBC % APTT 62.3 H Sodium Potassium Chloride Carbon Dioxide Anion Gap BUN Creatinine Est GFR ( Amer) Est GFR (Non-Af Amer) BUN/Creatinine Ratio Glucose Lactic Acid 4.2 H* Calcium Total Bilirubin AST ALT Alkaline Phosphatase Troponin I B-Natriuretic Peptide 406 H Total Protein Albumin Globulin Albumin/Globulin Ratio Imaging 03/22/18 CTA Chest IMPRESSION: 1. Saddle pulmonary embolus. 2. Cholelithiasis. 03/22/18 TTE EF Normal LV diasoltic dysfunction Mod-Severe RV dilation Severely reduced RV Function McConnells Sign + Impression: 67F with no significant PMH presents with Saddle Pulmonary embolus with right heart strain 2/2 right foot fracture Saddle PE with right heart strain - provoked 2/2 foot fracture - given iv tpa - monitor for bleeding - start heparin gtt when ptt returns to normal - check LE dopplers - consider ivc filter if has significant clot burden in lower extremity - limited TTE in 2 days to evaluate right heart - will need at least 3 months of anticoagulation Critical Care Time: 70 mins
--- NOTE | 2018-03-22 12:45 | RAD ---
Indication: Leg edema. Duplex Doppler sonography of the deep venous system of both lower extremities was performed. Bilaterally the common femoral veins, proximal greater saphenous veins, proximal deep femoral veins, femoral veins, appear patent and compressible. The left popliteal vein, posterior tibial veins and peroneal veins are patent and compressible. There is echogenic material with diminished and absent flow in the right popliteal vein, posterior tibial veins and peroneal veins. IMPRESSION:. There is deep venous thrombosis of the right popliteal vein, posterior tibial vein and peroneal veins..
[2018-03-22 12:54] LABS: INR 0.97 (0.77-1.02)
[2018-03-22 16:00] LABS: EGFR Non-African American 48.2 (>60)
[2018-03-22] MEDS ORDERED: Heparin VIAL(*) 5000 UNITS/ML VIAL (FIVE THOUSAND) IV PRN (17:40)
[2018-03-22] MEDS ORDERED: Heparin VIAL(*) 5000 UNITS/ML VIAL (FIVE THOUSAND) IV SCH (18:30)
[2018-03-22] MEDS: Heparin DRIP 25,000 UNITS(*) 25,000 UNITS/500 ML BAG IV SCH (19:30)
[2018-03-23 06:11] LABS: ABS Basophils 0 10^3/ul (0-0.2); ABS Eosinophils 0.2 10^3/ul (0-0.6); ABS Lymphocytes 2.3 10^3/ul (1.0-4.8); ABS Monocytes 0.5 10^3/ul (0-0.8); ABS Neutrophils 4.8 10^3/ul (1.5-7.7); ABS Nucleated RBC 0 10^3/ul; Hematocrit 36 % (35-47); Lymphocyte % 29.5 % (25-47); Mean Corpuscular HGB Conc 34 g/dl (31-36); Mean Corpuscular Hemoglobin 27 pg (27-31); Mean Corpuscular Volume 79 fL (80-97); Nucleated Red Blood Cells % 0; Platelet Count 153 10^3/ul (150-450); Red Blood Count 4.51 10^6/ul (4.00-5.40); Red Cell Distribution Width 14 % (10.5-15); White Blood Count 7.9 10^3/ul (3.5-10.8)
[2018-03-23 06:31] LABS: EGFR Non-African American 57.6 (>60)
--- NOTE | 2018-03-23 08:18 | PN ---
Date of Service: 03/23/18 Critical Care Services: 67F with no significant PMH presents with Saddle Pulmonary embolus with cor pulmonale provoked by foot fracture 03/23: s/p tpa at 1030a yesterday. doing well without complaint today Vital Signs: Temp Pulse Resp BP SpO2 FiO2 98.3 F 55 18 115/60 96 03/23/18 07:32 03/23/18 07:01 03/23/18 07:58 03/23/18 07:01 03/23/18 07:01 Physical Exam: Gen - NAD HEENT - ncat, eomi, perrl Neck - no jvd CV - s1/s2, no murmur Lungs - cta, no wheeze Abd - soft, nt, nd Ext - +RLE swelling, minimal erythema, Homans sign negative Neuro - Non-focal Fluid Balance (Past 24 Hours): I= O= Net Intake & Output 03/21/18 03/22/18 03/23/18 03/24/18 06:59 06:59 06:59 06:59 Intake Total 3207.7 480 Output Total 700 Balance 2507.7 480 Weight 86.183 kg 97.2 kg Intake: IV Fluids 2091.5 Heparin 169.2 Oral 947 480 Output: Urine 700 Labs: Laboratory Results - last 24 hr 03/22/18 03/22/18 03/22/18 07:01 10:30 14:35 WBC RBC Hgb Hct MCV MCH MCHC RDW Plt Count MPV Neut % (Auto) Lymph % (Auto) [place] % (Auto) Eos % (Auto) Baso % (Auto) Absolute Neuts (auto) Absolute Lymphs (auto) Absolute Monos (auto) Absolute Eos (auto) Absolute Basos (auto) Absolute Nucleated RBC Nucleated RBC % INR (Anticoag Therapy) 0.97 APTT 21.0 L 62.3 H 34.3 Sodium Potassium Chloride Carbon Dioxide Anion Gap BUN Creatinine Est GFR ( Amer) Est GFR (Non-Af Amer) BUN/Creatinine Ratio Glucose Lactic Acid Calcium Phosphorus Magnesium Troponin I 03/22/18 03/22/18 03/22/18 14:35 14:35 18:30 WBC RBC Hgb Hct MCV MCH MCHC RDW Plt Count MPV Neut % (Auto) Lymph % (Auto) [place] % (Auto) Eos % (Auto) Baso % (Auto) Absolute Neuts (auto) Absolute Lymphs (auto) Absolute Monos (auto) Absolute Eos (auto) Absolute Basos (auto) Absolute Nucleated RBC Nucleated RBC % INR (Anticoag Therapy) APTT Sodium 141 Potassium 4.5 Chloride 109 Carbon Dioxide 23 Anion Gap 9 BUN 22 Creatinine 1.12 H Est GFR ( Amer) 58.4 Est GFR (Non-Af Amer) 48.2 BUN/Creatinine Ratio 19.6 Glucose 160 H Lactic Acid 2.4 H* Calcium 8.9 Phosphorus Magnesium Troponin I 0.51 H* 0.46 H* 03/22/18 03/23/18 03/23/18 18:30 01:25 05:55 WBC RBC Hgb Hct MCV MCH MCHC RDW Plt Count MPV Neut % (Auto) Lymph % (Auto) [place] % (Auto) Eos % (Auto) Baso % (Auto) Absolute Neuts (auto) Absolute Lymphs (auto) Absolute Monos (auto) Absolute Eos (auto) Absolute Basos (auto) Absolute Nucleated RBC Nucleated RBC % INR (Anticoag Therapy) APTT 30.6 78.9 H Sodium 140 Potassium 3.6 Chloride 109 Carbon Dioxide 24 Anion Gap 7 BUN 20 Creatinine 0.96 H Est GFR ( Amer) 69.7 Est GFR (Non-Af Amer) 57.6 BUN/Creatinine Ratio 20.8 H Glucose 95 Lactic Acid Calcium 8.6 Phosphorus 3.3 Magnesium 2.0 Troponin I 03/23/18 05:55 WBC 7.9 RBC 4.51 Hgb 12.0 Hct 36 MCV 79 L MCH 27 MCHC 34 RDW 14 Plt Count 153 MPV 8.0 Neut % (Auto) 61.4 Lymph % (Auto) 29.5 [place] % (Auto) 6.5 Eos % (Auto) 2.0 Baso % (Auto) 0.6 Absolute Neuts (auto) 4.8 Absolute Lymphs (auto) 2.3 Absolute Monos (auto) 0.5 Absolute Eos (auto) 0.2 Absolute Basos (auto) 0 Absolute Nucleated RBC 0 Nucleated RBC % 0 INR (Anticoag Therapy) APTT Sodium Potassium Chloride Carbon Dioxide Anion Gap BUN Creatinine Est GFR ( Amer) Est GFR (Non-Af Amer) BUN/Creatinine Ratio Glucose Lactic Acid Calcium Phosphorus Magnesium Troponin I Studies: 03/22/18 CTA Chest IMPRESSION: 1. Saddle pulmonary embolus. 2. Cholelithiasis. 03/22/18 TTE EF Normal LV diasoltic dysfunction Mod-Severe RV dilation Severely reduced RV Function McConnells Sign + Impression: 67F with no significant PMH presents with Saddle Pulmonary embolus with cor pulmonale provoked by foot fracture Plan: Saddle PE with cor pulmonale - s/p tpa - doing well - lactic acidosis and elida have resolved - off bedrest at 1030a - c/w hep gtt goal ptt 60-90 - will need repeat tte to eval right heart function before discharge - does have residual dvt in popliteal vein, however, i dont believe ivc filter is warranted given her stability - will need at least 3 months of systemic anticoagulation - stable for downgrade to floor Critical Care Time: 35 mins
[2018-03-24] MEDS: Heparin DRIP 25,000 UNITS(*) 25,000 UNITS/500 ML BAG IV SCH (02:33)
[2018-03-24 05:55] LABS: ABS Basophils 0.1 10^3/ul (0-0.2); ABS Eosinophils 0.2 10^3/ul (0-0.6); ABS Lymphocytes 2.3 10^3/ul (1.0-4.8); ABS Monocytes 0.4 10^3/ul (0-0.8); ABS Neutrophils 3.9 10^3/ul (1.5-7.7); ABS Nucleated RBC 0 10^3/ul; Eosinophil % 3.1 % (0-6); Hematocrit 36 % (35-47); Lymphocyte % 33.2 % (25-47); Mean Corpuscular HGB Conc 34 g/dl (31-36); Mean Corpuscular Hemoglobin 27 pg (27-31); Mean Corpuscular Volume 80 fL (80-97); Mean Platelet Volume 7.5 um3 (7.4-10.4); Nucleated Red Blood Cells % 0.1; Platelet Count 165 10^3/ul (150-450); Red Blood Count 4.45 10^6/ul (4.00-5.40); Red Cell Distribution Width 14 % (10.5-15)
[2018-03-24 06:11] LABS: EGFR Non-African American 71.1 (>60)
--- NOTE | 2018-03-24 13:55 | PN ---
Subjective Date of Service: 03/24/18 Interval History: Patient feeling much better. No limit on functional capacity in hospital. No CP or SOB. Persistent pain in foot. Denies abdominal pain, F/C, N/V, dysuria, dizziness, or other pain. Is interested in NOAC over coumadin when pros and cons discussed. Family History: Unchanged from Admission Social History: Unchanged from Admission Past Medical History: Unchanged from Admission Objective Active Medications: Heparin Sodium (Porcine) (Heparin Vial(*)) 0 units IV .PER PROTOCOL [facility] Heparin Sodium/Dextrose (Heparin Drip 25,000 Units(*)) 25,000 units in 500 mls @ 0 mls/hr IV PER RATE [facility]; Protocol Last Admin: 03/24/18 02:33 Dose: 15 mls/hr Vital Signs - 8 hr 03/24/18 03/24/18 03/24/18 07:11 08:00 11:19 Temperature 98.8 F 98.0 F Pulse Rate 63 69 Respiratory 18 18 20 Rate Blood Pressure 117/66 124/73 (mmHg) O2 Sat by Pulse 98 97 Oximetry Oxygen Devices in Use Now: None Appearance: Patient is a 67yo female who appears younger than stated age who is sitting in the bed in [facility]. Eyes: No Scleral Icterus, PERRLA Ears/Nose/Mouth/Throat: NL Teeth, Lips, Gums, Clear Oropharnyx, Mucous Membranes Moist Neck: NL Appearance and Movements; NL JVP, Trachea Midline Respiratory: Symmetrical Chest Expansion and Respiratory Effort, Clear to Auscultation Cardiovascular: NL Sounds; No Murmurs; No JVD, RRR, No Edema Abdominal: NL Sounds; No Tenderness; No Distention, No Hepatosplenomegaly Lymphatic: No Cervical Adenopathy Extremities: No Edema, No Clubbing, Cyanosis Skin: No Rash or Ulcers, No Nodules or Sclerosis Neurological: Alert and Oriented x 3, NL Sensation, NL Muscle Strength and Tone , - - CN II-XII intact. Result Diagrams: 03/24/18 05:46 03/24/18 05:46 Additional Lab and Data: Lab Results 03/22/18 03/22/18 03/22/18 Range/Units 07:01 07:01 07:01 WBC 15.8 H (3.5-10.8) 10^3/ul RBC 5.48 H (4.00-5.40) 10^6/ul Hgb 14.6 (12.0-16.0) g/dl Hct 44 (35-47) % MCV 80 (80-97) fL MCH 27 (27-31) pg MCHC 33 (31-36) g/dl RDW 14 (10.5-15) % Plt Count 208 (150-450) 10^3/ul MPV 8.0 (7.4-10.4) um3 Neut % (Auto) 82.9 (38-83) % Lymph % (Auto) 11.3 L (25-47) % [place] % (Auto) 5.1 (0-7) % Eos % (Auto) 0.3 (0-6) % Baso % (Auto) 0.4 (0-2) % Absolute Neuts (auto) 13.1 H (1.5-7.7) 10^3/ul Absolute Lymphs (auto) 1.8 (1.0-4.8) 10^3/ul Absolute Monos (auto) 0.8 (0-0.8) 10^3/ul Absolute Eos (auto) 0 (0-0.6) 10^3/ul Absolute Basos (auto) 0.1 (0-0.2) 10^3/ul Absolute Nucleated RBC 0 10^3/ul Nucleated RBC % 0.1 APTT 21.0 L (26.0-36.3) seconds Sodium 141 (135-145) mmol/L Potassium 3.9 (3.5-5.0) mmol/L Chloride 107 (101-111) mmol/L Carbon Dioxide 20 L (22-32) mmol/L Anion Gap 14 H (2-11) mmol/L BUN 22 (6-24) mg/dL Creatinine 1.36 H (0.51-0.95) mg/dL Est GFR ( Amer) 46.6 (>60) Est GFR (Non-Af Amer) 38.6 (>60) BUN/Creatinine Ratio 16.2 (8-20) Glucose 213 H (70-100) mg/dL Lactic Acid (0.5-2.0) mmol/L Calcium 9.8 (8.6-10.3) mg/dL Total Bilirubin 0.60 (0.2-1.0) mg/dL AST 23 (13-39) U/L ALT 16 (7-52) U/L Alkaline Phosphatase 115 H (34-104) U/L Troponin I 0.43 H* (<0.04) ng/mL B-Natriuretic Peptide ( - 100) pg/mL Total Protein 7.6 (6.4-8.9) g/dL Albumin 4.1 (3.2-5.2) g/dL Globulin 3.5 (2-4) g/dL Albumin/Globulin Ratio 1.2 (1-3) 03/22/18 03/22/18 Range/Units 07:01 07:01 WBC (3.5-10.8) 10^3/ul RBC (4.00-5.40) 10^6/ul Hgb (12.0-16.0) g/dl Hct (35-47) % MCV (80-97) fL MCH (27-31) pg MCHC (31-36) g/dl RDW (10.5-15) % Plt Count (150-450) 10^3/ul MPV (7.4-10.4) um3 Neut % (Auto) (38-83) % Lymph % (Auto) (25-47) % [place] % (Auto) (0-7) % Eos % (Auto) (0-6) % Baso % (Auto) (0-2) % Absolute Neuts (auto) (1.5-7.7) 10^3/ul Absolute Lymphs (auto) (1.0-4.8) 10^3/ul Absolute Monos (auto) (0-0.8) 10^3/ul Absolute Eos (auto) (0-0.6) 10^3/ul Absolute Basos (auto) (0-0.2) 10^3/ul Absolute Nucleated RBC 10^3/ul Nucleated RBC % APTT (26.0-36.3) seconds Sodium (135-145) mmol/L Potassium (3.5-5.0) mmol/L Chloride (101-111) mmol/L Carbon Dioxide (22-32) mmol/L Anion Gap (2-11) mmol/L BUN (6-24) mg/dL Creatinine (0.51-0.95) mg/dL Est GFR ( Amer) (>60) Est GFR (Non-Af Amer) (>60) BUN/Creatinine Ratio (8-20) Glucose (70-100) mg/dL Lactic Acid 4.2 H* (0.5-2.0) mmol/L Calcium (8.6-10.3) mg/dL Total Bilirubin (0.2-1.0) mg/dL AST (13-39) U/L ALT (7-52) U/L Alkaline Phosphatase (34-104) U/L Troponin I (<0.04) ng/mL B-Natriuretic Peptide 406 H ( - 100) pg/mL Total Protein (6.4-8.9) g/dL Albumin (3.2-5.2) g/dL Globulin (2-4) g/dL Albumin/Globulin Ratio (1-3) Microbiology and Other Data: Microbiology 03/22/18 07:01 Aerobic Blood Culture - Preliminary Blood Venous No Growth Day 2 Anaerobic Blood Culture - Preliminary No Growth Day 2 03/22/18 07:01 Aerobic Blood Culture - Preliminary Blood Venous No Growth Day 2 Anaerobic Blood Culture - Preliminary No Growth Day 2 03/22/18 10:18 Nasal Screen MRSA (PCR) - Final Nasal Mrsa Not Detected Assess/Plan/Problems-Billing Assessment: Patient is a 67yo female with a PMH significant only for recent right ankle fracture who cam in hemodynamically unstable with a saddle embolism and DVT who received TPA and has improved greatly but is still on a heparin drip. - Patient Problems (1) Pulmonary embolism with acute cor pulmonale Current Visit: Yes Status: Acute Code(s): I26.09 - OTHER PULMONARY EMBOLISM WITH ACUTE COR PULMONALE SNOMED Code(s): 39865854 Comment: With hypotension, hypoxia with Cor Pulmonale. Given TPA with good effect. Now asymptomatic. Repeat echo to assess RV function pending. Continue Heparin Drip. Will transition to Xarelto when echo back. (2) DVT of lower extremity (deep venous thrombosis) Current Visit: Yes Status: Acute Code(s): I82.409 - ACUTE EMBOLISM AND THOMBOS UNSP DEEP VN UNSP LOWER EXTREMITY SNOMED Code(s): 311982559 Comment: Provoked with LE fracture. No need for IVC filter. No need for hypercoagulable workup. (3) Urethral stricture Current Visit: Yes Status: Acute Code(s): N35.9 - URETHRAL STRICTURE, UNSPECIFIED SNOMED Code(s): 53271157 Comment: Follow up with Urology outpatient. Asymptomatic. (4) Nondisp fracture of fifth right metatarsal bone with routine healing Current Visit: Yes Status: Acute Code(s): S92.354D - NONDISP FX OF 5TH METATARSAL BONE, R FT, 7THD SNOMED Code(s): 235073937 Comment: Moderate persistent pain. Follow with Orthopedics outpatient. (5) Full code status Current Visit: Yes Status: Acute Code(s): Z78.9 - OTHER SPECIFIED HEALTH STATUS SNOMED Code(s): 384081491 Status and Disposition: Inpatient.
[2018-03-24] MEDS: Rivaroxaban TAB(*) 15 MG PO SCH (20:31)
[2018-03-25 06:06] LABS: ABS Basophils 0.1 10^3/ul (0-0.2); ABS Eosinophils 0.3 10^3/ul (0-0.6); ABS Lymphocytes 1.9 10^3/ul (1.0-4.8); ABS Monocytes 0.5 10^3/ul (0-0.8); ABS Neutrophils 3.8 10^3/ul (1.5-7.7); ABS Nucleated RBC 0 10^3/ul; Eosinophil % 4.4 % (0-6); Hematocrit 40 % (35-47); Hemoglobin 13.6 g/dl (12.0-16.0); Lymphocyte % 29.5 % (25-47); Mean Corpuscular HGB Conc 34 g/dl (31-36); Mean Corpuscular Hemoglobin 28 pg (27-31); Mean Corpuscular Volume 80 fL (80-97); Mean Platelet Volume 7.6 um3 (7.4-10.4); Nucleated Red Blood Cells % 0.2; Platelet Count 204 10^3/ul (150-450); Red Blood Count 4.95 10^6/ul (4.00-5.40); Red Cell Distribution Width 14 % (10.5-15); White Blood Count 6.5 10^3/ul (3.5-10.8)
[2018-03-25 06:40] LABS: EGFR Non-African American 63.7 (>60)
[2018-03-25] MEDS: Rivaroxaban TAB(*) 15 MG PO SCH (09:07)
--- NOTE | 2018-03-25 09:29 | ECHO ---
Patient: ISABEL NASH [facility] Rec#: [id number] : 1950 Date: 03/24/2018 Age: 67y Height: 173 cm / 68.1 in Weight: 97.2 kg / 214.2 lbs Sex: F BSA: 2.11 Room#: [facility] Admit Date#: 03/22/2018 Type: Inpatient Referring: Trevor Krause DO Reading: Attila Winchester MD Salon Supervisor: Angela Delgado RDCS CC: Arvind Maher MD Transthoracic Echocardiogram Indication: Pulmonary Embolism follow up. BP: 122/64 HR: 59 Rhythm: Bradycardia Findings History: Saddle pulmonary embolism 03/22/18. This is a LIMITED study to reassess RV function. Technical Comments: The study quality is fair. Left Ventricle: The left ventricular chamber size is normal. There is no left ventricular hypertrophy. There is normal left ventricular systolic function. The estimated ejection fraction is 55-60%. Right Ventricle: Moderator Band present. The right ventricle is moderately dilated. The right ventricular global systolic function is mildly to moderately reduced. Tricuspid Valve: The tricuspid valve leaflets are normal. There is mild tricuspid regurgitation. The right ventricular systolic pressure is estimated at 31 mmHg. There is evidence that pulmonary hypertension may be underestimated. There is no tricuspid stenosis. Pericardium: There is no significant pericardial effusion. A pericardial fat pad is visualized. Venous: The inferior vena cava is dilated. There is an approximate 50% respiratory change in the inferior vena cava dimension. Conclusions There is normal left ventricular systolic function. The estimated ejection fraction is 55-60%. The right ventricle is moderately dilated. The right ventricular global systolic function is mildly to moderately reduced. There is mild tricuspid regurgitation. The right ventricular systolic pressure is estimated at 31 mmHg. There is evidence that pulmonary hypertension may be underestimated. Interval improvement in RV function compared to 8.8.18 which was severely compromised last time. Measurements Name Value Normal Range RVDdMajor (2D) 5.1 cm (2.2 - 4.4) IVSd (2D) 0.9 cm (0.6 - 1) LVPWd (2D) 0.9 cm (0.6 - 1) LVIDd (2D) 4.1 cm (3.6 - 5.4) LVIDs (2D) 2.5 cm - Name Value Normal Range TR Vmax 2.4 m/sec - TR peak gradient 23 mmHg - RAP 8 mmHg - RVSP 31 mmHg - IVC diameter 2.5 cm -
[2018-03-25 15:04] VITALS: BP 144/76
--- NOTE | 2018-03-26 04:41 | DS ---
CC: Arvind Maher MD; Stone Onofre MD* DISCHARGE SUMMARY: DATE OF ADMISSION: 03/22/18 DATE OF DISCHARGE: 03/25/18 PRIMARY CARE PROVIDER: Arvind Maher MD MY ATTENDING WHILE IN THE HOSPITAL: Stone Onofre MD* (dictated by NGHIA Madden). PRIMARY DISCHARGE DIAGNOSES: 1. Provoked right lower extremity deep vein thrombosis. 2. Saddle pulmonary embolism. 3. Cor pulmonale. SECONDARY DISCHARGE DIAGNOSES: 1. Right fifth metatarsal and talonavicular fractures. 2. Urethral strictures. STUDIES DONE WHILE IN THE HOSPITAL: Chest thorax CTA from 03/22/18 read as saddle pulmonary embolus, cholelithiasis. Electrocardiogram from 03/22/18, read as rate of 92, QTc of 484, T wave inversions in the inferior leads, as well poor R wave progression, U wave present, left axis deviation, no other abnormalities. No other study to compare. Transthoracic echocardiogram from read as estimated ejection fraction of 60 to 65%, normal left ventricular diastolic function observed, consistent with impaired relaxation, right ventricle is moderately to severely dilated, right ventricular global systolic function appeared severely reduced, free wall of the right ventricle appears akinetic, preserved RV function at the apex consistent with Kee's sign, consider pulmonary embolism and acute cor pulmonale. Bowing of the Interventricular septum at end systole and diastole consistent with right ventricular pressure, although right atrium is mildly dilated, there is mild to moderate tricuspid regurgitation. There is evidence of pulmonary hypertension, may be underestimated. Repeat limited transesophageal echocardiogram from 03/24 read as normal left ventricular systolic function, estimated ejection fraction 55 to 60%, right ventricle mildly dilated, right ventricular systolic function is mildly to moderately reduced, there is tricuspid regurgitation. There is ventricular systolic pressure estimated 31 mmHg. There is evidence of pulmonary hypertension, may be underestimated, interval improvement in right ventricular function compared to 03/23/18. MEDICATIONS AT DISCHARGE: Xarelto 15 mg p.o. b.i.d. x39 doses, Xarelto 20 mg p.o. daily thereafter. HOSPITAL COURSE: This is a brief summary of the patient's presentation. For more details, please see the history and physical from Dr. Trevor Krause on 03/02. In brief, the patient is a 67-year-old female with past medical history significant only for the above who presented to the emergency department after several days of leg swelling, which she attributed to her camping recently, broken her foot. The patient had sudden onset of shortness of breath and weakness on the morning of her admission. The patient came in to the emergency department and was found to be markedly hypoxic and had a saddle pulmonary embolism as above. The patient's initial oxygen saturation was at a low of 84% on room air. The patient was tachycardic and her blood pressure was initially 81/57. The patient was placed on 4 L of oxygen. There was hypotension. Findings of CTA. The patient had elevated troponin at 0.43 and elevated BNP as well as elevated lactic acid and creatinine. The patient was deemed to be eligible for TPA. The patient received 100 mg of TPA per protocol. The patient 's troponin peaked at 0.51. The patient's creatinine improved. The patient's lactic acid improved with fluids. The patient initially had leukocytosis, which resolved entirely. On 03/23/18, the patient was transitioned to heparin drip. The patient's symptoms improved greatly on 03/23/18 with almost near resolution of her shortness of breath. The patient was found to have DVT as above. IVC filter was deemed not necessary due to status post TPA and stability. The patient was continued on her heparin drip. The patient continued to improve. The patient was transferred out of the ICU on 03/23/18. The patient had a repeat echocardiogram on 03/24/18 as above. The patient was transitioned from her heparin drip to Xarelto starting dose for acute treatment of PE. The patient had no other laboratory abnormalities. The patient felt stable. The patient was able to ambulate without apparent difficulty. The patient had no dizziness, swelling in her legs. The patient had moderate pain from her left lower extremity fracture. The patient had no other complaints during her hospitalization. The patient was stable enough for discharge on 06/02. PHYSICAL EXAMINATION ON DAY OF DISCHARGE: General: The patient is a 67-year- old female who appears stated age and sitting comfortably in the bed, in no acute distress. Vital Signs: At the time of discharge, temperature 97.5, pulse rate 67, respiratory rate 20, oxygen saturation 97% on room air, blood pressure 144/76. HEENT: Head: Normocephalic, atraumatic. Sclerae anicteric. No conjunctival injection. Nasal mucosa is moist. Oral mucosa moist. No pharyngeal erythema, discharge, or exudate. Neck: Supple, nontender. No lymphadenopathy. No carotid bruits auscultated. No JVD. Cardiac: Regular rate and rhythm. No clicks, murmurs, gallops, or rubs. Pulses 2+ in the bilateral dorsalis pedis, posterior tibialis, and radial areas. Abdomen: Soft , nontender, nondistended. Bowel sounds present. Normoactive in all 4 quadrants. No hepatosplenomegaly. No abdominal bruits auscultated. No hepatojugular reflux. Skin: Clean, dry, intact. Ecchymosis around the left antecubitum corresponding to TPA infusion site. Neuro: Cranial nerves II through XII intact. No focal deficits. Alert and oriented x3. Psychiatric: Pleasant and cooperative. DISCHARGE PLAN: The patient will be discharged to home. The patient will be started on Xarelto. The patient should be maintained on Xarelto for at least 3 months. It is also being used for acute treatment of PE. The patient should have an initial 21-day course of Xarelto, 39 pills have been prescribed and after these are exhausted, the patient should began on 20 mg daily. The patient will follow up with primary care provider within 1 week for general medical management. The patient should follow up with her orthopedist as scheduled for monitoring of her improvement in her right foot fracture. The patient should wear her Cam boot as instructed. The patient should return to the hospital for alarming symptoms such as severe shortness of breath, chest pain, syncope. The patient should have a repeat echocardiogram to evaluate function of her right ventricle in 3 months from the time of the possible discontinuation of the anticoagulation to assess her CTEPH. The patient should be monitoring herself closely for signs of bleeding. The patient should have a repeat CBC at her followup appointment with her primary care provider. The patient could not benefit from a workup for hypercoagulability as this would provoke PE. TIME SPENT: Approximately 60 minutes were spent on this discharge, 30 of which were spent [id number] with the patient obtaining history and physical and discussing treatment plan. JOS LOR, [place] [id number]/[facility] #: [id number] LASHA
== END 2018-03-25 13:45 | disposition home or self-care (01) | DRG 175 ==
LOC: ED 06:33 → ICU 09:29 → MEDTELE 03-23 10:33
PROVIDERS: ADMIT Internal Medicine; ATTEND Hospitalist
DX: I26.02 Saddle embolus of pulmonary artery with acute cor pulmonale (principal); N17.9 Acute kidney failure, unspecified; E87.2 Acidosis; I82.431 Acute embolism and thrombosis of right popliteal vein; R40.2362 Coma scale, best motor response, obeys commands, at arrival to emergency department; R09.02 Hypoxemia; R40.2142 Coma scale, eyes open, spontaneous, at arrival to emergency department; R40.2252 Coma scale, best verbal response, oriented, at arrival to emergency department; I95.9 Hypotension, unspecified; K80.20 Calculus of gallbladder without cholecystitis without obstruction; N35.9 Urethral stricture, unspecified; I07.1 Rheumatic tricuspid insufficiency; I27.29 Other secondary pulmonary hypertension; R74.8 Abnormal levels of other serum enzymes; S92.351D Displaced fracture of fifth metatarsal bone, right foot, subsequent encounter for fracture with routine healing; S92.101D Unspecified fracture of right talus, subsequent encounter for fracture with routine healing; S92.251D Displaced fracture of navicular [scaphoid] of right foot, subsequent encounter for fracture with routine healing; Z86.711 Personal history of pulmonary embolism; Z98.51 Tubal ligation status; Z83.3 Family history of diabetes mellitus; Z72.89 Other problems related to lifestyle
CPT/HCPCS: 36415; 71275; 80048; 80053; 83605; 83735; 83880; 84100; 84484; 85025; 85610; 85730; 87040; 87641; 93005; 93306; 93308; 93970; 99284; G8978-GP-CI; G8979-GP-CH; J2997; Q9967